=== PATIENT | male | born 1960 | race Caucasian/White ===

== ENCOUNTER → 2018-04-23 | Outpatient (CLI) | payer OTHER ==
--- NOTE | ~2018-04-23 | PATH ---
[facility] [address] [place] [address] PATHOLOGY RPT PROCEDURE Name: LENA TRAN Room #: RADHA Tai.#: [id number] Admission: 04/23/18 Date of : 60 Discharge: Report #: [id number] Path Case #: [id number] Note [facility] Accession Number: [id number] TESTS RESULT FLAG UNITS REF RANGE LAB Clinician Provided Cytology Information No. of containers..01 Other (Miscellaneous) Source: LFT THY/PARATHYROID DIAGNOSIS: 02 LEFT INFERIOR THYROID/PARATHYROID NEGATIVE FOR MALIGNANT CELLS. B[place] CATEGORY II. SPECIMEN CONSISTS OF FOLLICULAR CELLS IN MACROFOLLICLES, HEMOSIDERIN-LADEN MACROPHAGES, COLLOID, AND BLOOD. THIS PATTERN IS COMPATIBLE WITH A COLLOID NODULE. Comment: Examination shows numerous groups of macrofollicles along with numerous lymphocytes, few Hurthle cells, abundant macrophages and scant dense colloid. Nuclear features of papillary thyroid carcinoma are not identified. Findings are suggestive of an adenomatoid nodule. Please note sample may not be entirely tax representative. Correlate clinically and follow-up as indicated. Pathologist ICD10: 02 E04.1 Signed out by: 02 Valentine Bernard MD, Pathologist NPI- [id number] Performed by: 03 Remedios Alvarez, Auto Service Dispatcher (ASCP) Gross description: 01 25 ML, PINK, CLEAR /LCS FLAG LEGEND: L-Low Normal,H-High Normal,LL-Alert Low,HH-Alert High <-Panic Low,>-Panic High,A-Abnormal,AA-Critical Abnormal Performed at: 01 [facility] [address] [place] [address] Monico Dennis MD, 02 [facility] [address] [id number] Valentine Bernard MD, 03 J[facility] [address] [id number] [address] PATHOLOGY RPT PROCEDURE Name: LENA TRAN Room #: REG AMILCAR Melgoza#: [id number] Admission: 04/23/18 Date of : 60 Discharge: Report #: [id number] Path Case #: [id number] Jordin Soliman MD, Performed at: 01 [facility] [address], [place], [place] [id number] MD Monico Dennis MD Phone: [phone]
== END | disposition home or self-care (01) ==
LOC: ULTRA 12:53
DX: E04.1 Nontoxic single thyroid nodule (principal)